=== PATIENT | female | born 1985 | race Caucasian/White ===

== ENCOUNTER → 2017-04-02 | Outpatient (REF) | payer BC ==
[2017-04-02 13:44] LABS: MEAN CORPUSCULAR HEMOGLOBIN 29.9 pg (27.0-33.0); MEAN CORPUSCULAR HGB CONC 32.9 g/dl (32.0-36.5); MEAN CORPUSCULAR VOLUME 90.9 fl (80.0-96.0); RED CELL DISTRIBUTION WIDTH 13.1 % (11.5-14.5); WHITE BLOOD COUNT 5.1 K/mm3 (4.0-10.0)
[2017-04-02 14:17] LABS: ALBUMIN 3.6 GM/DL (3.2-5.2); ALKALINE PHOSPHATASE 60 U/L (45-117); ALT/SGPT 17 U/L (12-78); ANION GAP 7 MEQ/L (8-16); AST/SGOT 10 U/L (15-37); BILIRUBIN,TOTAL 0.4 MG/DL (0.2-1.0); BLOOD UREA NITROGEN 10 MG/DL (7-18); CALCIUM LEVEL 8.4 MG/DL (8.5-10.1); CARBON DIOXIDE LEVEL 27 MEQ/L (21-32); CHLORIDE LEVEL 106 MEQ/L (98-107); CREATININE FOR GFR 0.68 MG/DL (0.55-1.02); GLOMERULAR FILTRATION RATE > 60.0 (>60); GLUCOSE, FASTING 90 MG/DL (70-105); POTASSIUM SERUM 4.1 MEQ/L (3.5-5.1); SODIUM LEVEL 140 MEQ/L (136-145); TOTAL PROTEIN 6.6 GM/DL (6.4-8.2)
[2017-04-04 00:07] LABS: Lyme Disease IgG/IgM Antibodie <0.91 ISR (0.00-0.90); Lyme Disease IgM Ab Quantitati <0.80 index (0.00-0.79)
== END ==
LOC: M SFHCLERA 10:30
PROVIDERS: ATTEND Nurse Practitioner Family
DX: R20.2 Paresthesia of skin (principal)

== ENCOUNTER → 2017-04-22 | Outpatient (REF) | payer BC | LOC: M SFHCLERA 10:55 | PROVIDERS: ATTEND Physician Assistant | DX: R51 Headache (principal) ==

== ENCOUNTER → 2017-05-20 | Outpatient (CLI) | payer BC ==
--- NOTE | 2017-05-20 13:23 | REP ---
Digital diagnostic unilateral left breast mammography and focused left breast sonography: History: Palpable lump times 1 year left breast at 12 o'clock. Mammographic findings: Unilateral left breast mammogram is performed with a marker on the skin at the site of the palpable lump. Breast parenchyma is heterogeneously dense. No soft tissue mass, architectural distortion, nodule or microcalcification is seen mammographically. Sonographic findings: Focused left breast sonography is performed at and about the 12 o'clock palpable abnormality. Heterogeneous fibroglandular background echotexture is seen. No cyst or mass is observed sonographically. Impression: BIRADS category 1 negative left breast imaging. This negative report should not dissuade one from biopsy of a palpable lump depending on its clinical characteristics. Clinical follow-up is advised. BI-RADS/ACR category 1 mammogram. Negative. Routine annual screening mammography (for women over age 40). This mammogram was interpreted with the aid of an FDA-approved computer-aided detection system. The patient states she/he had a clinical breast exam in May 2017. The patient letter being requested is M2. Signed by Kristopher Quintanilla MD 05/20/2017 04:23 P
== END ==
LOC: M RAD 10:42
PROVIDERS: ATTEND Family Medicine
DX: N63 Unspecified lump in breast (principal)
CPT/HCPCS: 76642; G0204

== ENCOUNTER → 2017-05-22 | Outpatient (CLI) | payer BC | LOC: M LAB 16:07 | PROVIDERS: ATTEND Internal Medicine Cardiovascular Disease | DX: I49.3 Ventricular premature depolarization (principal) ==

== ENCOUNTER 2018-04-06 01:14 | Emergency (ER) | payer OTHER, BC ==
[~2018-04-06 01:14] MED LIST: ISOVUE-370 76% 100ML VIAL (Q9967) As Ordered
[2018-04-06 02:32] LABS: ANION GAP 7 MEQ/L (8-16); BLOOD UREA NITROGEN 15 MG/DL (7-18); CALCIUM LEVEL 8.4 MG/DL (8.5-10.1); CARBON DIOXIDE LEVEL 27 MEQ/L (21-32); CHLORIDE LEVEL 108 MEQ/L (98-107); CREATININE FOR GFR 0.84 MG/DL (0.55-1.30); GLOMERULAR FILTRATION RATE > 60.0 (>60); GLUCOSE, FASTING 92 MG/DL (70-100); SODIUM LEVEL 142 MEQ/L (136-145)
== END 2018-04-06 02:40 | disposition home or self-care (01) ==
LOC: M ED 01:14
DX: R10.9 Unspecified abdominal pain (principal); R07.9 Chest pain, unspecified; V43.52XA Car driver injured in collision with other type car in traffic accident, initial encounter; Y92.9 Unspecified place or not applicable; Y93.9 Activity, unspecified; Y99.9 Unspecified external cause status; K59.00 Constipation, unspecified
CPT/HCPCS: Q9967

== ENCOUNTER 2018-08-18 17:26 | Emergency (ER) | payer BC, OTHER | END 2018-08-18 20:18 | disposition home or self-care (01) | LOC: M ED 17:26 | DX: S90.32XA Contusion of left foot, initial encounter (principal); W55.12XA Struck by horse, initial encounter; Y92.89 Other specified places as the place of occurrence of the external cause; F33.9 Major depressive disorder, recurrent, unspecified; Z79.899 Other long term (current) drug therapy; F17.210 Nicotine dependence, cigarettes, uncomplicated | CPT/HCPCS: 73610 ==

== ENCOUNTER → 2018-08-26 | Outpatient (REF) | payer BC ==
[2018-08-26 22:00] LABS: CHLAMYDIA DNA AMPLIFICATION NEGATIVE (NEGATIVE); GC DNA AMPLIFICATION NEGATIVE (NEGATIVE)
== END ==
LOC: M SFHCLERA 08-27 18:46
DX: Z30.013 Encounter for initial prescription of injectable contraceptive (principal)

== ENCOUNTER → 2018-10-30 | Outpatient (REF) | payer BC | LOC: M SFHCLERA 09:24 | PROVIDERS: ATTEND Family Medicine | DX: N93.9 Abnormal uterine and vaginal bleeding, unspecified (principal) ==

== ENCOUNTER → 2018-12-05 | Outpatient (REF) | payer MEDICAID ==
[2018-12-05 20:49] LABS: BASO # 0.1 10^3/uL (0.0-0.2); BASO % 0.8 % (0.0-1.0); EOS # 0.2 10^3/uL (0.0-0.50); EOS % 2.7 % (0.0-3.0); HEMATOCRIT 38.9 % (36.0-47.0); HEMOGLOBIN 12.5 g/dl (12.0-15.5); LYMPH # 2.6 10^3/uL (1.5-4.5); LYMPH % 41.4 % (24.0-44.0); MEAN CORPUSCULAR HEMOGLOBIN 27.7 pg (27.0-33.0); MEAN CORPUSCULAR HGB CONC 32.1 g/dl (32.0-36.5); MEAN CORPUSCULAR VOLUME 86.1 fl (80.0-96.0); MONO # 0.4 10^3/uL (0.0-0.8); MONO % 7.1 % (0.0-5.0); NEUTROPHILS % 47.8 % (36.0-66.0); PLATELET COUNT, AUTOMATED 276 10^3/uL (150-450); RED BLOOD COUNT 4.52 10^6/uL (4.00-5.40); WHITE BLOOD COUNT 6.2 10^3/uL (4.0-10.0)
[2018-12-05 20:58] LABS: ALBUMIN 3.7 GM/DL (3.2-5.2); ALT/SGPT 18 U/L (12-78); BILIRUBIN,TOTAL 0.2 MG/DL (0.2-1.0); BLOOD UREA NITROGEN 14 MG/DL (7-18); CALCIUM LEVEL 8.3 MG/DL (8.5-10.1); CARBON DIOXIDE LEVEL 29 MEQ/L (21-32); CHLORIDE LEVEL 109 MEQ/L (98-107); CREATININE FOR GFR 0.82 MG/DL (0.55-1.30); GLOMERULAR FILTRATION RATE > 60.0 (>60); GLUCOSE, FASTING 87 MG/DL (70-100); SODIUM LEVEL 143 MEQ/L (136-145); TOTAL PROTEIN 6.5 GM/DL (6.4-8.2)
[2018-12-09 17:06] LABS: HCG, SERUM QUANTITATIVE < 1.0 MIU/ML
== END ==
LOC: M SFHCLERA 16:10
PROVIDERS: ATTEND Nurse Practitioner Family
DX: R10.13 Epigastric pain (principal); N92.6 Irregular menstruation, unspecified

== ENCOUNTER → 2018-12-09 | Outpatient (CLI) | payer MEDICAID ==
--- NOTE | 2018-12-09 09:23 | REP ---
Right upper quadrant sonography: History: Epigastric pain. Comparison study: Comparison CT study April 06, 2018. Findings: Scanning through the right upper quadrant of the abdomen demonstrates a normal sized, thin-walled gallbladder without evidence of stone. There is a 0.5 cm polyp in the gallbladder without acoustic shadowing. No focal liver lesion is seen by ultrasound. I note that the April 06, 2018 CT study showed a 2.9 cm hemangioma high in the dome of the liver near the diaphragm. This was not seen on today's study. Common bile duct is normal measuring 0.3 cm in greatest diameter. No focal liver lesion is seen. Liver size is normal. No pancreatic abnormality is observed. No right renal abnormality is seen. There is no evidence of ascites. The right kidney measures 10.9 x 4.8 x 4.6 cm. Impression: 0.5 cm gallbladder polyp. Otherwise negative right upper quadrant sonography. The known hepatic hemangioma seen on prior CT study was not visualized sonographically. Electronically Signed by Kristopher Quintanilla MD 12/09/2018 10:04 A
== END ==
LOC: M RAD 06:16
PROVIDERS: ATTEND Nurse Practitioner Family
DX: K82.4 Cholesterolosis of gallbladder (principal); R10.13 Epigastric pain

== ENCOUNTER → 2019-02-12 | Outpatient (CLI) | payer MEDICAID | LOC: M LRY 14:08 | PROVIDERS: ATTEND Nurse Practitioner Family | DX: R20.2 Paresthesia of skin (principal); Z53.9 Procedure and treatment not carried out, unspecified reason ==

== ENCOUNTER → 2019-02-13 | Outpatient (CLI) | payer MEDICAID ==
--- NOTE | 2019-02-13 15:30 | REP ---
CERVICAL SPINE SERIES: Seven views of the cervical spine performed. There is no compression fracture. There is partial fusion of the C4 and C5 vertebral bodies and posterior elements. The other disc spaces are relatively well preserved. There is no evidence of subluxation with flexion and extension. I do not see radiographic evidence of significant neural foraminal narrowing. IMPRESSION: Partial fusion of the C4 and C5 vertebral bodies and posterior elements. Electronically Signed by Carlos Moran MD 02/13/2019 05:06 P
== END ==
LOC: M LRY 13:34
PROVIDERS: ATTEND Nurse Practitioner Family
DX: R20.2 Paresthesia of skin (principal); Z98.1 Arthrodesis status

== ENCOUNTER 2019-03-29 17:50 | Emergency (ER) | payer MEDICAID, OTHER ==
[~2019-03-29] VITALS: Ht 152.4 cm; Wt 52.3 kg
[2019-03-29] MEDS ORDERED: PRED20TA PO (18:56)
[2019-03-29] MEDS ORDERED: BENA25CA4 PO (18:56)
[2019-03-29] MEDS ORDERED: PEPC1TAB5 PO (18:57)
[2019-03-29] MEDS ORDERED: diphenhydrAMINE 50 MG CAP PO ONE (19:00)
[2019-03-29] MEDS ORDERED: FAMOTIDINE 20 MG TAB PO ONE (19:00)
[2019-03-29] MEDS ORDERED: predniSONE 20 MG TAB PO ONE (19:00)
[2019-03-29 19:36] VITALS: BP 118/70
== END 2019-03-29 19:37 | disposition home or self-care (01) ==
LOC: M ED 17:50
DX: L50.9 Urticaria, unspecified (principal); Z72.0 Tobacco use

== ENCOUNTER → 2020-06-22 | Outpatient (CLI) | payer MEDICAID, OTHER ==
[~2020-06-22] MED LIST changes: +BENA25CA4 PO; -ISOVUE-370 76% 100ML VIAL (Q9967) As Ordered; +OXYC1TAB23; +PEPC1TAB5 PO; +PRED20TA PO; +PROAAER10 INH
--- NOTE | 2020-07-29 10:39 | REP ---
ABDOMINAL RIGHT UPPER QUADRANT ULTRASOUND: Delay in reporting results from hospital computer system malfunction from malware/ ransomware. HISTORY: Epigastric pain. COMPARISON: Abdomen/pelvis CT dated 04/06/18 and gallbladder ultrasound dated 12/09/18. FINDINGS: On the comparison CT with IV contrast, there were findings compatible with cavernous hemangioma in the dome of the liver that measured 2.9 cm. This lesion could not be identified on the comparison gallbladder ultrasound. However on the study today, this lesion is identified by ultrasound as a slightly hyperechoic mass in the dome of the liver. On the ultrasound today, it measures 2.6 x 3.2 x 2.6 cm. There are 2 adherent noncalcified nodules in the gallbladder, one near the fundus measuring approximately 3 mm in diameter and the other near the gallbladder neck measuring 4 mm in diameter. On the comparison ultrasound, there was a single noncalcified gallbladder wall polyp that measured approximately 5 mm. These are nonmobile. They could represent gallbladder polyps or noncalcified adherent calculi. There is no gallbladder wall thickening. There is no intrahepatic or extrahepatic biliary duct dilatation. The common duct measures 2.3 mm in diameter. The right kidney measures 9.9 x 5.1 x 4.0 cm and is normal size. There is no right renal hydronephrosis, calculus, mass or cyst. There is no free fluid in the abdominal right upper quadrant. IMPRESSION: There are 2 nonmobile, noncalcified nodules along the gallbladder wall, as described, likely gallbladder wall polyps, although adherent noncalcified calculi are also possible. No biliary duct dilatation. There is a slightly hyperechoic mass in the dome of the liver, as described, not significantly changed in size from the comparison CT of 04/06/18. On the comparison CT, there were findings compatible with hemangioma. The visualized areas of the pancreas are unremarkable. The right kidney is unremarkable. There is no free fluid. ABDOMINAL WALL ULTRASOUND: Abdominal wall ultrasound is performed in the location of the patient's epigastric pain without and with Valsalva. In the area of the epigastric pain in the anterior abdominal wall, there are 2 anterior abdominal wall hernias containing omental fat, but no bowel. One hernia sac measures 4.2 mm without Valsalva and increases to 6.4 mm with Valsalva. The other hernia sac measures 3.5 mm without Valsalva and 5.7 mm with Valsalva. There is no bowel within either hernia sac. These hernias are not reducible. On review of the comparison CT, I do not identify these hernias at the time of the CT examination. Both of these hernias appear to be superior to the umbilicus. MTDD
== END ==
LOC: M RAD 07:55
PROVIDERS: ATTEND Family Medicine
DX: R10.13 Epigastric pain (principal)

== ENCOUNTER → 2020-07-31 | Outpatient (CLI) | payer MEDICAID | LOC: M LABSMTC 10:51 | PROVIDERS: ATTEND Anesthesiology | DX: Z01.812 Encounter for preprocedural laboratory examination (principal); Z20.828 Contact with and (suspected) exposure to other viral communicable diseases | CPT/HCPCS: C9803; U0003 ==

== ENCOUNTER 2020-08-05 09:30 | Day surgery (SDC) | payer OTHER ==
[~2020-08-05] VITALS: Ht 152.4 cm; Wt 53.5 kg
[~2020-08-05 09:30] MED LIST changes: +LIDOCAINE 1% MDV 20ML VIAL SQ PRN; +LR 1,000 ML IV ONE; -OXYC1TAB23; -PROAAER10 INH; +ceFAZolin SOD 2 GM in IV 1 EA IV ONE
[2020-08-05] MEDS ORDERED: fentaNYL 100 MCG/2 ML INJECTION (J3010) As Ordered ONE (11:23)
[2020-08-05] MEDS ORDERED: MIDAZOLAM INJ 2MG/2ML VIAL (J2250 PER 1MG) As Ordered ONE (11:23)
[2020-08-05] MEDS ORDERED: LIDOCAINE 2% 100MG/5ML SDV (FOR ANES.) As Ordered ONE (11:24)
[2020-08-05] MEDS ORDERED: propofoL 200 MG/20 ML VIAL As Ordered ONE (11:24)
[2020-08-05] MEDS ORDERED: ONDANSETRON 4MG/2ML VIAL As Ordered ONE ×2 (11:28→12:55)
[2020-08-05] MEDS ORDERED: dexameTHASONE 4 MG/ML 1ML VIAL (J1100 PER 1MG) As Ordered ONE (11:28)
[2020-08-05] MEDS ORDERED: ceFAZolin 1GM VIAL (J0690 PER 500MG) As Ordered ONE (11:44)
[2020-08-05] MEDS ORDERED: BUPIVACAINE HCL 0.25% 30ML VIAL As Ordered ONE (11:44)
[2020-08-05] MEDS ORDERED: LIDOCAINE 1% SDV 30ML VIAL As Ordered ONE (11:44)
[2020-08-05] MEDS ORDERED: METOCLOPRAMIDE INJ 10MG/2ML VIAL (J2765 PER 1) As Ordered ONE (13:04)
[2020-08-05] MEDS ORDERED: PROMETHAZINE INJ 25 MG/ML VIAL (J2550) IV PRN (13:30)
[2020-08-05] MEDS ORDERED: METOCLOPRAMIDE INJ 10MG/2ML VIAL (J2765 PER 1) IV PRN (13:30)
[2020-08-05] MEDS ORDERED: ONDANSETRON 4MG/2ML VIAL IV PRN (13:30)
[2020-08-05] MEDS ORDERED: LR 1,000 ML IV SCH (13:30)
[2020-08-05] MEDS ORDERED: PERCOCET 5MG/325MG TAB PO PRN ×2 (13:30)
[2020-08-05] MEDS ORDERED: KETOROLAC 30 MG/ML 1ML VIAL IV PRN (13:30)
[2020-08-05] MEDS ORDERED: fentaNYL 100 MCG/2 ML INJECTION (J3010) IV PRN (13:30)
[2020-08-05 15:25] VITALS: BP 99/60
--- NOTE | 2020-08-18 11:49 | ROOPDOC ---
[facility] Report Of Operation Report of Operation DATE OF PROCEDURE: 08/05/20 PREPROCEDURE DIAGNOSES: Epigastric hernia 2. POSTPROCEDURE DIAGNOSES: Small preperitoneal fat containing epigastric hernia 2. PROCEDURE: Primary Repair of epigastric hernia. SURGEON: Reid Kelley MD CROSS TIE MAKER: ANESTHESIA: General Anesthesia. ESTIMATED BLOOD LOSS: Approximately 10 mL. COMPLICATIONS: . REMARKS: . PROCEDURE NOTE: . DESCRIPTION OF PROCEDURE: . REID KELLEY MD Aug 18, 2020 11:49
== END 2020-08-05 15:35 | disposition home or self-care (01) ==
LOC: M SDC 09:30
PROVIDERS: ATTEND Surgery
DX: K43.9 Ventral hernia without obstruction or gangrene (principal); K82.8 Other specified diseases of gallbladder; I49.3 Ventricular premature depolarization; Z87.891 Personal history of nicotine dependence; F41.9 Anxiety disorder, unspecified; F32.9 Major depressive disorder, single episode, unspecified
CPT/HCPCS: 49570; 81025; J0690; J1100; J2250; J2405; J2765; J3010

== ENCOUNTER 2020-08-08 14:45 | Emergency (ER) | payer OTHER ==
[~2020-08-08] VITALS: Ht 152.4 cm; Wt 53.9 kg
[~2020-08-08 14:45] MED LIST changes: -LIDOCAINE 1% MDV 20ML VIAL SQ PRN; -LR 1,000 ML IV ONE; -ceFAZolin SOD 2 GM in IV 1 EA IV ONE
[2020-08-08] MEDS ORDERED: OXYC1TAB23 (14:53)
[2020-08-08] MEDS ORDERED: ONDANSETRON 4MG/2ML VIAL IV ONE (16:30)
[2020-08-08] MEDS ORDERED: NS 1,000 ML IV ONE (16:30)
[2020-08-08] MEDS ORDERED: KETOROLAC 30 MG/ML 1ML VIAL IV ONE (16:30)
[2020-08-08 16:44] LABS: BASO % 0.7 % (0.0-1.0); EOS # 0.1 10^3/uL (0.0-0.5); EOS % 1.1 % (0.0-3.0); HEMATOCRIT 39.1 % (36.0-47.0); HEMOGLOBIN 12.8 g/dl (12.0-15.5); LYMPH # 2.1 10^3/uL (1.5-5.0); LYMPH % 34.3 % (24.0-44.0); MEAN CORPUSCULAR HEMOGLOBIN 29.2 pg (27.0-33.0); MEAN CORPUSCULAR HGB CONC 32.7 g/dl (32.0-36.5); MEAN CORPUSCULAR VOLUME 89.3 fl (80.0-96.0); MONO # 0.3 10^3/uL (0.0-0.8); MONO % 5.1 % (0.0-5.0); NEUTROPHILS # 3.6 10^3/uL (1.5-8.5); NEUTROPHILS % 58.5 % (36.0-66.0); PLATELET COUNT, AUTOMATED 254 10^3/uL (150-450); RED BLOOD COUNT 4.38 10^6/uL (4.00-5.40); WHITE BLOOD COUNT 6.1 10^3/uL (4.0-10.0)
[2020-08-08 17:17] LABS: ALBUMIN 3.8 GM/DL (3.2-5.2); ALT/SGPT 18 U/L (12-78); BILIRUBIN,DIRECT < 0.1 MG/DL (0.0-0.2); BILIRUBIN,TOTAL 0.2 MG/DL (0.2-1.0); LIPASE 62 U/L (73-393)
[2020-08-08] MEDS ORDERED: ISOVUE-370 76% 100ML VIAL As Ordered ONE (17:25)
--- NOTE | 2020-08-08 18:17 | REPVR ---
PROCEDURE INFORMATION: Exam: CT Angiography Chest With Contrast Exam date and time: 08/08/2020 4:16 PM Age: 34 years old Clinical indication: Shortness of breath; Additional info: SOB, 3 days S/P abd wall hernia repair TECHNIQUE: Imaging protocol: Computed tomographic angiography of the chest with intravenous contrast. 3D rendering (Not supervised by radiologist): MIP and/or 3D reconstructed images were created by the technologist. Radiation optimization: All CT scans at this facility use at least one of these dose optimization techniques: automated exposure control; mA and/or kV adjustment per patient size (includes targeted exams where dose is matched to clinical indication); or iterative reconstruction. Contrast material: ISOVUE 370; Contrast volume: 75 ml; Contrast route: INTRAVENOUS (IV); COMPARISON: CT Chest with contrast 04/06/2018 1:18 AM FINDINGS: Pulmonary arteries: Normal. No pulmonary emboli. Aorta: Unremarkable. No aortic aneurysm. No aortic dissection. Lungs: Unremarkable. No consolidation. No masses. Pleural space: Unremarkable. No pneumothorax. No pleural effusion. Heart: Unremarkable. No cardiomegaly. No pericardial effusion. Lymph nodes: Unremarkable. No enlarged lymph nodes. Bones/joints: Unremarkable. No acute fracture. Soft tissues: Unremarkable. IMPRESSION: No pulmonary embolism. Electronically signed by: Devyn Stephenson On 08/08/2020 18:17:15 PM
[2020-08-08] MEDS ORDERED: ALBUTEROL 90 MCG/ACT 8GM HFA INHALER INH ONE (18:30)
[2020-08-08 18:39] VITALS: BP 119/66
[2020-08-08] MEDS ORDERED: PROAAER10 INH (18:47)
--- NOTE | 2020-08-08 19:56 | ECGEPIP ---
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
== END 2020-08-08 19:17 | disposition home or self-care (01) ==
LOC: M ED 14:45
DX: T88.9XXA Complication of surgical and medical care, unspecified, initial encounter (principal); R06.02 Shortness of breath; R94.31 Abnormal electrocardiogram [ECG] [EKG]; Z79.899 Other long term (current) drug therapy
CPT/HCPCS: 71275; 80047; 80076; 83690; 84702; 85025; 93005; 94640; 94760; 96361; 96374; 96375; 99284; J1885; J2405; Q9967

== ENCOUNTER 2021-04-24 11:19 | Emergency (ER) | payer MEDICAID, OTHER ==
[~2021-04-24] VITALS: Ht 152.4 cm; Wt 53.8 kg
[~2021-04-24 11:19] MED LIST changes: +OXYC1TAB23; +PROAAER10 INH
[2021-04-24] MEDS ORDERED: ONDANSETRON 4MG/2ML VIAL IV ONE (12:05)
[2021-04-24] MEDS ORDERED: MORPHINE 2 MG/ML 1ML VIAL (J2270) IV PRN (12:05)
[2021-04-24] MEDS ORDERED: ISOVUE-370 76% 100ML VIAL As Ordered ONE (12:33)
[2021-04-24 12:36] LABS: BASO % 0.4 % (0.0-1.0); EOS % 0.4 % (0.0-3.0); HEMATOCRIT 42.4 % (36.0-47.0); LYMPH # 1.6 10^3/uL (1.5-5.0); LYMPH % 22.7 % (24.0-44.0); MEAN CORPUSCULAR HEMOGLOBIN 29.5 pg (27.0-33.0); MEAN CORPUSCULAR VOLUME 89.3 fl (80.0-96.0); MONO # 0.4 10^3/uL (0.0-0.8); MONO % 5.3 % (2.0-8.0); NEUTROPHILS # 4.9 10^3/uL (1.5-8.5); NEUTROPHILS % 70.9 % (36.0-66.0); PLATELET COUNT, AUTOMATED 278 10^3/uL (150-450); RED BLOOD COUNT 4.75 10^6/uL (4.00-5.40)
--- NOTE | 2021-04-24 12:40 | REP ---
INDICATION: blunt force trauma. COMPARISON: None. TECHNIQUE: AP pelvis and AP and frogleg views of each hip are provided. Five views total. FINDINGS: Bony pelvic ring is intact. No pelvic or sacral fracture is seen. Femoral heads are smooth and rounded hip joint spaces are preserved bilaterally. No fracture is seen in either proximal femur or hip. There is a tiny os acetabula on the left. Periarticular soft tissues are unremarkable. IMPRESSION: No traumatic abnormality noted. <Electronically signed by Naveen Quintanilla > 04/24/21 [id number]
[2021-04-24 12:47] LABS: INR 0.9; PROTHROMBIN TIME 12.3 SECONDS (12.5-14.3)
[2021-04-24 12:48] LABS: PARTIAL THROMBOPLASTIN TIME 26.7 SECONDS (24.2-38.5)
[2021-04-24 13:00] LABS: BLOOD UREA NITROGEN 17 MG/DL (7-18); CARBON DIOXIDE LEVEL 26 MEQ/L (21-32); CHLORIDE LEVEL 107 MEQ/L (98-107); CREATININE FOR GFR 0.72 MG/DL (0.55-1.30); GLOMERULAR FILTRATION RATE > 60.0 (>60); GLUCOSE, FASTING 85 MG/DL (70-100); SODIUM LEVEL 139 MEQ/L (136-145)
--- NOTE | 2021-04-24 13:02 | REP ---
INDICATION: kicked by horse rlq/right pelvis. COMPARISON: 04/06/2018 TECHNIQUE: Standard helical technique after the intravenous administration of 100 cc Isovue 370. No oral bowel preparatory contrast was administered prior to the exam. FINDINGS: The lung bases are clear. Once again, there is and hepatic hemangioma at the liver dome unchanged from the prior exam. The liver is otherwise unremarkable and unchanged. The gallbladder, spleen, pancreas, adrenal glands, and kidneys are essentially unchanged and again seen to be within normal limits. The abdominal aorta and para-regions are again seen to be within normal limits. The bowel loops and the mesenteries are within normal limits. There is no free air. There is a trace amount of free pelvic fluid likely physiologic. There is no mass or adenopathy. There is soft tissue swelling and fatty infiltration of the central and right side of the mons pubis extending into the labia majora on the right. Bone window technique throughout the exam shows the osseous structures to be within normal limits and essentially unchanged. IMPRESSION: 1. Soft tissue swelling and edema in the anterior extrapelvic soft tissues as described above consistent with the patient's history of recent trauma. <Electronically signed by Cesar Rodriguez > 04/24/21 [id number]
[2021-04-24 13:15] VITALS: BP 122/76
[2021-04-24 13:47] LABS: APPEARANCE, URINE CLEAR (CLEAR); BACTERIA, URINE AUTO NEGATIVE (NEGATIVE); BILIRUBIN, URINE AUTO NEGATIVE (NEGATIVE); BLOOD, URINE BLOOD NEGATIVE (NEGATIVE); COLOR, URINE YELLOW (YELLOW); GLUCOSE, URINE (UA) AUTO NEGATIVE (NEGATIVE); KETONE, URINE AUTO TRACE mg/dL (NEGATIVE); LEUKOCYTE ESTERASE, URINE AUTO NEGATIVE (NEGATIVE); MUCUS, URINE SMALL (NEGATIVE); NITRITE, URINE AUTO NEGATIVE (NEGATIVE); PROTEIN, URINE AUTO NEGATIVE (NEGATIVE); RBC, URINE AUTO 1 /HPF (0-3); SPECIFIC GRAVITY URINE AUTO 1.038 (1.002-1.035); SQUAMOUS EPITHELIAL CELL UR AU 1 /HPF (0-6); UROBILINOGEN, URINE AUTO 0.2 mg/dL (0.0-2.0); WBC, URINE AUTO 1 /HPF (0-3)
--- NOTE | 2021-04-27 15:06 | HPE ---
HISTORY AND PHYSICAL DATE OF ADMISSION: 04/24/2021 CHIEF COMPLAINT: Being kicked by horse. HISTORY OF PRESENT ILLNESS: This is a 35-year-old female who was cleaning a stall when a horse kicked her right in the lower abdomen just above the bladder. She presented by herself to the emergency room for evaluation. In the emergency room (ER), her vitals were all stable. Workup was essentially negative aside from some soft tissue swelling and edema at the anterior pelvic soft tissues, but no signs of any fractures or fluid collections of any sort. Because of this, I was asked to evaluate her prior to being discharged. She claims that this just happened probably just an hour prior to admission. Denies any problems with urination or bladder as of now, but she has not tried to urinate since the accident. No other abdominal pains away from the area. No loss of consciousness. She got pushed up against the wall. She did not fall down or hit her head or any other part of her body. No other complaints at this time. PAST MEDICAL HISTORY: Negative. PAST SURGICAL HISTORY: Abdominal hernia repair. ALLERGIES: None. HOME MEDICATIONS: None. SOCIAL HISTORY: Negative. FAMILY HISTORY: Noncontributory. REVIEW OF SYSTEMS: Per positives and negatives in the history of present illness (HPI). PHYSICAL EXAMINATION: GENERAL: Alert and oriented times three. No acute distress. VITAL SIGNS: Temperature 98.3, pulse 68, respirations 20, blood pressure 129/77, pulse oximetry 93% on room air. HEENT: Pupils equal, round and reactive to light and accommodation. HEART: S1, S2. Regular rate and rhythm. LUNGS: Clear to auscultation bilaterally. ABDOMEN: Soft. Slight tenderness to palpation suprapubically. No rebound, guarding or rigidity. No signs of any hernias. No bruising. EXTREMITIES: No clubbing, cyanosis or edema. Distal pulses are equal and palpable bilaterally. LABORATORY DATA: White count 7, hemoglobin 14, platelets 278. Potassium 4, creatinine 0.72. Urinalysis was completed, which was negative for any blood. IMAGING: CT abdomen and pelvis showed soft tissue swelling and edema at the anterior extrapelvic soft tissues consistent with history of recent trauma. No fractures of any kind. Hip x-ray was also completed that was negative for any fractures. ASSESSMENT AND PLAN: Patient is a 35-year-old female status post pelvic trauma secondary to being kicked by a horse. Imaging and labs are unremarkable at this time aside from some significant bruising. Recommendation is for her to make sure that she can urinate on her own without difficulty prior to discharge. As long as she is able to urinate without any gross visible blood, then she should be stable for discharge home. Tylenol, Motrin as needed for pain, along with ice packs. She can follow up with our office as needed as an outpatient if anything changes.
== END 2021-04-24 15:10 | disposition home or self-care (01) ==
LOC: M ED 11:19
DX: S30.1XXA Contusion of abdominal wall, initial encounter (principal); S30.0XXA Contusion of lower back and pelvis, initial encounter; W55.12XA Struck by horse, initial encounter; Y92.71 Barn as the place of occurrence of the external cause; Y93.9 Activity, unspecified; Y99.9 Unspecified external cause status
CPT/HCPCS: 73521; 74177; 80047; 80048; 81001; 84702; 85025; 85610; 85730; 86850; 86900; 86901; 96374; 96375; 99284; Q9967